=== PATIENT | male | born 2000 | race Caucasian/White ===

== ENCOUNTER 2021-01-01 22:33 | Emergency (ER) | payer OTHER, SELFPAY ==
[2021-01-01 22:36] VITALS: BP 125/75; PULSE 69; RESP 16; TEMP 36.4; O2SAT 98
--- NOTE | 2021-01-01 23:09 | ED.GENADULT ---
HPI - General Adult General Chief complaint: Skin/Abscess/Foreign Body Stated complaint: insect bite Time Seen by Provider: 01/01/21 22:54 Source: patient History of Present Illness HPI narrative: Patient is a 20 y/o male complaining of several areas skin redness on left thigh, left lower abdomen and left side of shaft of penis. He has no pain or itch. He suspects that he may have been bitten by something. He also has a sore throat and felt some chills. Related Data Allergies Allergy/AdvReac Type Severity Reaction Status Date / Time No Known Allergies Allergy Verified 01/01/21 22:47 Review of Systems Constitutional: Constitutional: Reports chills, Denies fever(s), Denies headache(s) and Denies weakness Eyes: Eyes: Denies blurry vision ENT: Denies headache(s), Denies neck pain and Reports sore throat Cardiovascular: Cardiovascular: Denies chest pain and Denies dyspnea Respiratory: Respiratory: Denies cough and Denies dyspnea Gastrointestinal: Gastrointestinal: Denies abdominal pain, Denies diarrhea, Denies nausea and Denies vomiting Genitourinary: Genitourinary: Denies hematuria and Denies dysuria Musculoskeletal: Musculoskeletal: Denies back pain and Denies neck pain Integumentary/Breasts: Skin/Breast: Reports erythema (left thigh, lower abdomen, penis) Neurologic: Denies headache(s) and Denies weakness PMFSH Social History Social History Gender identity (if verbalized by the patient): Male Exam Const: General: no acute distress and well developed Orientation/consciousness: oriented to person, oriented to place, oriented to time and patient oriented x3 HENMT: Head: normocephalic Ears: external ears normal General nose exam: Normal external nose present Eyes: General: appearance normal, both eyes and all related structures Conjunctivae: conjunctivae normal GI: GI Palp: No abdominal tenderness and Yes Soft to palpation Skin: General skin exam: normal color, turgor normal and erythema (small 1-2 cm erythema left thigh, left lower abdomen and left penis) Neuro: General: oriented to person, oriented to place, oriented to time and patient oriented x3 Cognition (Neuro): normal cognition Extrem: General: normal to inspection, full ROM and no pedal edema Psych: Appearance: grossly normal Mental Status: mental status grossly normal Affect: normal affect Course Vital Signs Vital signs: Vital Signs Temperature 36.4 C L 01/01/21 22:36 Pulse Rate 69 01/01/21 22:36 Respiratory Rate 16 01/01/21 22:36 Blood Pressure 125/75 01/01/21 22:36 Pulse Oximetry 98 01/01/21 22:36 Temperature 36.4 C L 01/01/21 22:36 Pulse Rate 75 01/02/21 00:20 Respiratory Rate 16 01/02/21 00:20 Blood Pressure 118/76 01/02/21 00:20 Pulse Oximetry 99 01/02/21 00:20 Medical Decision Making Vital Signs Vital Signs: Vital Signs Temperature 36.4 C L 01/01/21 22:36 Pulse Rate 69 01/01/21 22:36 Respiratory Rate 16 01/01/21 22:36 Blood Pressure 125/75 01/01/21 22:36 Pulse Oximetry 98 01/01/21 22:36 Temperature 36.4 C L 01/01/21 22:36 Pulse Rate 75 01/02/21 00:20 Respiratory Rate 16 01/02/21 00:20 Blood Pressure 118/76 01/02/21 00:20 Pulse Oximetry 99 01/02/21 00:20 Lab Data Labs: Strep Screen Presumptive Negative *(Reference Range: Negative)* Discharge Plan Discharge Clinical Impression: Sorethroat Bug bite Qualifiers: Encounter type: initial encounter Qualified Code(s): W57.XXXA - Bitten or stung by nonvenomous insect and other nonvenomous arthropods, initial encounter Patient Disposition: Home, Self-Care Condition: Stable Instructions: Antibiotic Form, Pharyngitis (ED), Insect Bite or Sting (ED) Prescriptions: New cephalexin 500 mg capsule 500 mg PO Q8H 10 Days Qty: 30 RF: 0 No Action cetirizine [Zyrtec] 10 mg tabl
[2021-01-02 00:20] VITALS: BP 118/76; PULSE 75; RESP 16; O2SAT 99
== END 2021-01-02 00:20 | disposition home or self-care (01) ==
PROVIDERS: Emergency Provider Emergency Medicine
DX: S70.362A Insect bite (nonvenomous), left thigh, initial encounter (principal); S30.861A Insect bite (nonvenomous) of abdominal wall, initial encounter; S30.862A Insect bite (nonvenomous) of penis, initial encounter; W57.XXXA Bitten or stung by nonvenomous insect and other nonvenomous arthropods, initial encounter; J02.9 Acute pharyngitis, unspecified
CPT/HCPCS: 87081; 87880; 99283